=== PATIENT | female | born 1970 | race Caucasian/White ===

== ENCOUNTER 2017-05-25 20:33 | Emergency (ER) | payer MEDICAID ==
--- NOTE | 2017-05-25 20:53 | EDPHY ---
H & P Stated Complaint: pt think she has a tampon stuck x 3days, + odor/discharge Source: Patient Exam Limitations: No limitations - Personal History LMP (Females 10-55): 1-7 Days Ago Current Tetanus Diphtheria and Acellular Pertussis (TDAP): Yes - Medical/Surgical History Hx Asthma: No Hx Chronic Respiratory Disease: No Hx Diabetes: No Hx Cardiac Disease: No Hx Renal Disease: No Hx Cirrhosis: No Hx Alcoholism: Yes Hx HIV/AIDS: No Hx Splenectomy or Spleen Trauma: No Other PMH: herpes, Tonsilectomy - Social History Smoking Status: Never smoked Time Seen by Provider: 05/25/17 20:53 HPI/ROS: HPI: This is a 46-year-old female who presents with Chief Complaint: pt think she has a tampon stuck x 3days, + odor/discharge Location: Quality: Duration: Signs and Symptoms: no fever, no nausea, no vomiting, no hematemesis, no blood in stool, no abdominal bloating, no diarrhea, no back pain, no urinary symptoms , no testicular/groin pain, no indigestion, no chest pain, no shortness of breath Timing: Severity: Context: Modifying Factors: Comment: ROS: see HPI Constitutional: No fever, no chills, no weight loss Eyes: No blurred vision Respiratory: No shortness of breath, no cough Cardiovascular: No chest pain, no palpitations Gastrointestinal: No nausea, no vomiting, no diarrhea, no hematemesis, no blood in stool Genitourinary: No dysuria, no blood in urine Extremities: No myalgias, no edema Neurologic: No weakness, no numbness Skin: No rashes, no petechiae Hematologic: No bruising, no bleeding MEDICAL/SURGICAL/SOCIAL HISTORY: Medical history: Herpes Surgical history: Tonsillectomy Social history: CONSTITUTIONAL: awake and alert, no obvious distress HEENT: Atraumatic and normocephalic, PERRL, EOMI. Tympanic membranes clear. Oropharynx clear, no exudate and moist pink mucosa. Airway patent. No lymphadenopathy. No meningismus. Cardiovascular: Normal S1/S2, regular rate, regular rhythm, without murmur rub or gallop. PULMONARY/CHEST: Symmetrical and nontender. Clear to auscultation bilaterally. Good air movement. No accessory muscle usage. ABDOMEN: Soft, nondistended, nontender, no rebound, no guarding, no peritoneal signs, no masses or organomegaly. No CVAT. PELVIC: normal external genitalia, normal cervix, cervical os was closed, no cervical motion tenderness, no adnexal mass, no discharge, no bleeding. The exam was performed with a faculty research physician. EXTREMITIES: 2/2 pulses, strength 5/5, no deformities, no clubbing, no cyanosis or edema. NEUROLOGICAL: no focal neuro deficits. GCS 15. SKIN: Warm and dry, no erythema. no rash. Good capillary refill. (Mi,Gisela) Constitutional: Initial Vital Signs Temperature (C) 36.5 C 05/25/17 20:38 Heart Rate 81 05/25/17 20:38 Respiratory Rate 18 05/25/17 20:38 Blood Pressure 146/98 H 05/25/17 20:38 O2 Sat (%) 96 05/25/17 20:38 O2 Delivery Mode Room Air Allergies/Adverse Reactions: aspirin Allergy (Verified 05/25/17 20:37) Home Medications: Medication Instructions Recorded Advil 05/25/17 Famciclovir 05/25/17 Flonase Nasal [place] 05/25/17 Departure - Departure Disposition: Home, Routine, Self-Care Clinical Impression: Vaginal foreign body Qualifiers: Encounter type: initial encounter Qualified Code(s): T19.2XXA - Foreign body in vulva and vagina, initial encounter Condition: Good Instructions: Vaginal Foreign Body (ED) Additional Instructions: The tampon that was stuck has been removed. If you develop fever, abdominal pain, vaginal discharge, any concerning symptoms you should be re-evaluated. I am referring you to the OBGYN physician prison librarian. Referrals: Ellie Bains MD [Medical Doctor] - As per Instructions
[2017-05-25 21:31] VITALS: BP 125/89; PULSE 80; RESP 14; TEMP 98.1; O2SAT 95
--- NOTE | 2017-05-26 14:40 | EDPHY ---
H & P Stated Complaint: pt think she has a tampon stuck x 3days, + odor/discharge Time Seen by Provider: 05/25/17 20:53 HPI/ROS: CHIEF COMPLAINT: Tampon stuck in vagina HISTORY OF PRESENT ILLNESS: This is a 46-year-old female in general good health who is here because she has a tampon lodged against her cervix that she is unable to remove. She is not certain how long it has been there but thinks that it could have been as long as 3 days. She has completed her menstrual cycle. She notes an older and a slight discharge. She tells me that this most recent cycle was somewhat unusual for her in that the bleeding was darker in color than usual. REVIEW OF SYSTEMS: A ten point review of systems was performed and is negative with the exception of the items mentioned in the HPI. Past surgical history: Tonsillectomy Social history: She is single. She does not use tobacco products. General Appearance: Alert. Vital signs reviewed. Blood pressure 146/98 at triage, 125/89 at discharge. Focused exam performed. Respiratory: Lungs are clear to auscultation; no wheezes, rales, or rhonchi. Cardiovascular: Regular rate and rhythm; no murmur, rub, or gallop. Gastrointestinal: Abdomen is soft and nontender, no masses or organomegaly, bowel sounds normal. Skin: Warm and dry, no rashes on exposed skin, normal color. Pelvic: There is a tampon lodged against her cervix that was easily removed using a ring for sepsis. Uterus is nontender. No cervical motion tenderness. Cervix is not friable. No mucopurulent cervical discharge. Neurological: Alert and oriented. Moving all four extremities easily and equally. Psychiatric: Normal affect. - Personal History LMP (Females 10-55): 1-7 Days Ago Current Tetanus Diphtheria and Acellular Pertussis (TDAP): Yes - Medical/Surgical History Hx Asthma: No Hx Chronic Respiratory Disease: No Hx Diabetes: No Hx Cardiac Disease: No Hx Renal Disease: No Hx Cirrhosis: No Hx Alcoholism: Yes Hx HIV/AIDS: No Hx Splenectomy or Spleen Trauma: No Other PMH: herpes, Tonsilectomy - Social History Smoking Status: Never smoked Constitutional: Initial Vital Signs Temperature (C) 36.5 C 05/25/17 20:38 Heart Rate 81 05/25/17 20:38 Respiratory Rate 18 05/25/17 20:38 Blood Pressure 146/98 H 05/25/17 20:38 O2 Sat (%) 96 05/25/17 20:38 O2 Delivery Mode Room Air Allergies/Adverse Reactions: aspirin Allergy (Verified 05/25/17 20:37) Home Medications: Medication Instructions Recorded Advil 05/25/17 Famciclovir 05/25/17 Flonase Nasal [place] 05/25/17 Medical Decision Making ED Course/Re-evaluation: Vaginal foreign body, tampon, that was easily removed using a ring forceps. No evidence of PID or infection. She is not currently bleeding. She has no urinary signs or symptoms that would suggest UTI. We discussed the signs of infection that should prompt her to be re-evaluated. She is given a referral to OBGYN, as she does not have local medical care. Departure - Departure Disposition: Home, Routine, Self-Care Clinical Impression: Vaginal foreign body Qualifiers: Encounter type: initial encounter Qualified Code(s): T19.2XXA - Foreign body in vulva and vagina, initial encounter Condition: Good Instructions: Vaginal Foreign Body (ED) Additional Instructions: The tampon that was stuck has been removed. If you develop fever, abdominal pain, vaginal discharge, any concerning symptoms you should be re-evaluated. I am referring you to the OBGYN physician online user experience strategist. Referrals: Ellie Bains MD [Medical Doctor] - As per Instructions
== END 2017-05-25 21:31 | disposition home or self-care (01) ==
DX: T19.2XXA Foreign body in vulva and vagina, initial encounter (principal); X58.XXXA Exposure to other specified factors, initial encounter; Y93.89 Activity, other specified